=== PATIENT | male | born 1995 | race African-American/Black ===

== ENCOUNTER 2020-06-01 22:32 | Emergency (ER) | payer SELFPAY ==
[~2020-06-01] VITALS: Ht 188 cm; Wt 106.6 kg
[2020-06-01 22:35] VITALS: BP 111/72
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
--- NOTE | 2020-06-01 23:30 | NUR ---
ED Nurse Note: Kristian bandage applied to pt L hand as ordered by CHRIS. Pt reports decreased pain with bandage.
[2020-06-01] MEDS ORDERED: ACETAMINOPHEN500 M3 ORAL (23:38)
[2020-06-01 23:45] VITALS: BP 112/75
--- NOTE | 2020-06-01 23:45 | NUR ---
ER DISCHARGE NOTE: Patient is cleared to be discharged per ERMD, pt is aox4, on room air, with stable vital signs. pt was given dc and prescriptions instructions, pt was able to verbalize understanding, pt id band removed. pt is able to ambulate with steady gait. pt took all belongings.
--- NOTE | 2020-06-02 15:00 | Diagnostic Imaging Report ---
Indication: Left hand pain Technique: 3 views left hand Comparison: none Findings: No acute fractures. No dislocations. The joint spaces are preserved. Impression: Negative
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
== END 2020-06-01 23:45 | disposition home or self-care (01) ==
LOC: EMR 22:49
DX: S60.222A Contusion of left hand, initial encounter (principal); W51.XXXA Accidental striking against or bumped into by another person, initial encounter; Y92.9 Unspecified place or not applicable
CPT/HCPCS: 99283